=== PATIENT | male | born 1940 | race Caucasian/White ===

== ENCOUNTER → 2016-04-18 | Outpatient (CLI) | payer OTHER, MEDICARE ==
[~2016-04-18] MED LIST: GADOBUTROL 10 ML VIAL IVP ONE
--- NOTE | 2016-04-18 09:03 | MR ---
MRI of the Abdomen (Without and With Contrast) at 0719 hours Clinical Indications: Increased insulin production. Evaluate for insulinoma. ICD 10 code D49.0. Technique: Precontrast 2D FIESTA axial , FSE T2 breath-hold axial and coronal, in and out of phase a xial imaging, and T1 LAVA fat-suppressed imaging. Pre- and post contrast axial T1 fat-suppressed imag es before and at 1 minute, 3 minutes, 5 minutes and 10 minutes after 7 mL Gadavist were injected intr avenously without complication using a power injector. Findings: Pancreas is normal in size and signal intensity. No evidence for pancreatic mass or abnorma l enhancement. Spleen is normal in appearance. Liver is normal in appearance without evidence for mas s or abnormal enhancement. Gallbladder is unremarkable. Both adrenal glands are normal in size and ap pearance. Both kidneys enhance normally without evidence for mass or hydronephrosis. No significant a bdominal lymphadenopathy. Impression: Normal MRI abdomen without and with contrast.
== END ==
LOC: FIMAGING 06:43
PROVIDERS: ATTEND Family Medicine
DX: Z03.89 Encounter for observation for other suspected diseases and conditions ruled out (principal)
CPT/HCPCS: 74183; A9585

== ENCOUNTER → 2016-06-03 | Outpatient (CLI) | payer OTHER, MEDICARE | LOC: FIMAGING 16:38 | PROVIDERS: ATTEND Family Medicine | DX: J20.9 Acute bronchitis, unspecified (principal) ==